=== PATIENT | male | born 1995 | race Two or more races ===

== ENCOUNTER 2018-12-24 22:41 | Emergency (ER) | payer OTHER ==
[2018-12-24 23:02] VITALS: BP 124/57
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
--- NOTE | 2018-12-26 00:21 | EKG REPORT ---
SEVERITY:- NORMAL ECG - SINUS RHYTHM : Confirmed by: Lisa Ghotra 26-Dec-2018 00:20:11
== END 2018-12-25 05:30 | disposition home or self-care (01) ==
LOC: ER 22:41
DX: S00.83XA Contusion of other part of head, initial encounter (principal); R07.89 Other chest pain; R51 Headache; V49.9XXA Car occupant (driver) (passenger) injured in unspecified traffic accident, initial encounter; R47.81 Slurred speech
CPT/HCPCS: 70450; 71046; 72125; 93005; 93010; 99285